=== PATIENT | female | born 1940 | race Caucasian/White ===

== ENCOUNTER → 2020-01-19 | Outpatient (CLI) | payer MEDICARE, OTHER ==
[~2020-01-19] MED LIST: ASPIRIN E.C. 8181 MG PO; ATROVENT INHALE14 GM IH; CALCIUM 600600 M1 PO; CENTRUM SILVER1 TA1 PO; FLEXERIL 1010 MG/TAB PO; GLUCOPHAGE500 MG/TAB PO; JANUVIA50 MG PO; K-DUR 10 MEQ T10 MEQ PO; LANTUS100 U/ML SQ; LASIX 40MG TABL40 MG PO; MAG-OX 400400 MG/TAB PO; NASONEX SPRAY17 GM NS; NEURONTIN300 MG/CAP PO; NEXIUM 40MG40 MG PO; OMEGA 31000 MG PO; OSTEO-BI-FLEX 21 TAB PO; TOPROL XL100 MG PO; ZESTRIL40 MG PO; ZOCOR 80MG80 MG PO
== END ==
LOC: COL.LAB 21:16
DX: L97.909 Non-pressure chronic ulcer of unspecified part of unspecified lower leg with unspecified severity (principal)

== ENCOUNTER → 2020-06-17 | Outpatient (CLI) | payer MEDICARE, OTHER | LOC: ZCOL.LAB 16:32 | DX: E11.621 Type 2 diabetes mellitus with foot ulcer (principal) ==

== ENCOUNTER → 2020-11-04 | Outpatient (CLI) | payer MEDICARE, OTHER | LOC: ZCOL.LAB 16:50 | DX: L97.909 Non-pressure chronic ulcer of unspecified part of unspecified lower leg with unspecified severity (principal) ==